=== PATIENT | female | born 1955 | race Caucasian/White ===

== ENCOUNTER 2017-11-30 21:19 | Emergency (ER) | payer SELFPAY ==
[~2017-11-30] VITALS: Ht 157.5 cm; Wt 64.4 kg
[~2017-11-30 21:19] MED LIST: ADDE20XR PO; ALBU6.7H INH; CORTIS10A EACH EAR; PRED20 PO
[2017-11-30 21:23] VITALS: BP 171/79; PULSE 97; RESP 16; TEMP 97.8; O2SAT 96
[2017-11-30] MEDS ORDERED: CORTI10A EACH EAR (22:04)
--- NOTE | 2017-11-30 22:04 | PD ---
HPI Chief Complaint: ENT Complaint Time Seen by Provider: 21:55 Travel History International Travel<30 days: No Contact w/Intl Traveler<30days: No Traveled to known affect area: No History of Present Illness HPI 62-year-old female with bilateral otalgia arrives for evaluation. Patient reports swimming quite a bit lately. No fever. No otorrhea or tinnitus. Similar episodes have been treated successfully in the past with otic drops. PFSH Past Medical History ADHD: Yes Asthma: Yes ?: Not LMP: 11/08/17 Social History Alcohol Use: No Tobacco Use: No Substance Use: No Allergies-Medications (Allergen,Severity, Reaction): Coded Allergies: ibuprofen (Unverified Allergy, Severe, 11/30/17) DENIES ALLERGY Reported Meds & Prescriptions Reported Meds & Active Scripts Active Cortisporin Otic Suspension (Neomycin/Polymyxin/Hydrocortisone) 10 Ml Susp 4 Drop EACH EAR QID 7 Days Review of Systems General / Constitutional: No: Fever Eyes: No: Photophobia Physical Exam Narrative GENERAL: Well-nourished well-developed 8-year-old female pleasant no acute distress Vital Signs Date Time Temp Pulse Resp B/P (MAP) Pulse Ox O2 Delivery O2 Flow Rate FiO2 11/30/17 21:23 97.8 97 16 171/79 (109) 96 SKIN: Warm and dry. HEAD: Atraumatic. Normocephalic. EYES: Pupils equal and round. No scleral icterus. No injection or drainage. ENT: No nasal bleeding or discharge. Mucous membranes pink and moist. Minimal erythema and edema of the external auditory canal bilaterally. NECK: Trachea midline. No JVD. NEUROLOGICAL: Awake and alert. No obvious cranial nerve deficits. Motor grossly within normal limits. Five out of 5 muscle strength in the arms and legs. Normal speech. PSYCHIATRIC: Appropriate mood and affect; insight and judgment normal. Data Data Last Documented VS Vital Signs Date Time Temp Pulse Resp B/P (MAP) Pulse Ox O2 Delivery O2 Flow Rate FiO2 11/30/17 21:23 97.8 97 16 171/79 (109) 96 Orders Orders Ed Discharge Order (11/30/17 22:04) [facility] Medical Decision Making Medical Screen Exam Complete: Yes Emergency Medical Condition: Yes Medical Record Reviewed: Yes Differential Diagnosis Otitis media, otitis externa, trauma Narrative Course Otitis externa present. Prescription as below. Diagnosis Primary Impression: Otitis externa Qualified Codes: H60.63 - Unspecified chronic otitis externa, bilateral Referrals: Primary Care Physician 2 days Med/Other Pt SpecificInfo: Prescription(s) given Disposition: 01 DISCHARGE HOME Condition: Stable Daniel Goldstein MD Nov 30, 2017 22:04
== END 2017-11-30 22:18 | disposition home or self-care (01) ==
LOC: PHED 21:19
DX: H60.93 Unspecified otitis externa, bilateral (principal); F90.9 Attention-deficit hyperactivity disorder, unspecified type; J45.909 Unspecified asthma, uncomplicated; Z88.6 Allergy status to analgesic agent; Z79.899 Other long term (current) drug therapy
CPT/HCPCS: 99281

== ENCOUNTER 2018-01-14 15:51 | Emergency (ER) | payer SELFPAY ==
[~2018-01-14] VITALS: Ht 160 cm; Wt 60.3 kg
[~2018-01-14 15:51] MED LIST changes: -ADDE20XR PO; -ALBU6.7H INH; -PRED20 PO
[2018-01-14 16:04] VITALS: BP 195/92; PULSE 63; RESP 16; TEMP 97.9; O2SAT 95
--- NOTE | 2018-01-14 16:35 | PD ---
HPI Chief Complaint: Skin Problem Time Seen by Provider: 16:24 Travel History International Travel<30 days: No Contact w/Intl Traveler<30days: No Traveled to known affect area: No History of Present Illness HPI 62-year-old female with a history of chronic otitis externa presents emergency department evaluation bilateral ear pain that is been persistent for several months. States that she feels as if her ears are clogged and her pain is severe , nonradiating. Says that she was diagnosed with shingles 3 months ago but is unable to give me any more information regarding this diagnosis or how it is related. She states that she has had diffuse scalp pain associated with lesions for several months as well. Patient is rather frustrated because she is no health insurance. Says she has a difficult time obtaining medications because of this. Patient has not followed up with an torch shearer for her chronic ear infections. Denies fevers or chills. Has no other complaints today. PFSH Past Medical History ADHD: Yes Asthma: Yes Cardiovascular Problems: Yes (htn of takes no meds) Respiratory: Yes (asthma) ?: Not : 4 Para: 3 Social History Alcohol Use: No Tobacco Use: No (1 PPD) Substance Use: No Allergies-Medications (Allergen,Severity, Reaction): Coded Allergies: ibuprofen (Unverified Allergy, Severe, 01/14/18) DENIES ALLERGY Reported Meds & Prescriptions Reported Meds & Active Scripts Active Mupirocin Topical (Mupirocin) 2 % Oint 1 Applic TOPICAL BID Cipro Hc Otic Drops (Ciprofloxacin/Hydrocortisone) 0.2-1% Susp 3 Drop EACH EAR BID 10 Days Review of Systems Except as stated in HPI: all other systems reviewed are Neg Physical Exam Narrative GENERAL: Well-nourished, well-developed patient, anxious SKIN: Focused skin assessment warm/dry. Scalp-multiple small 3 mm ulcerations diffuse across the scalp, no pustules or vesicles present. No edema or erythema. HEAD: Normocephalic. EARS: Bilateral pinnae appear within normal limits. Bilateral tympanic membranes without erythema, dullness or perforation. Bilateral external ear canals erythematous and macerated without exudate or discharge, questionable white patch versus pustule left external ear canal EYES: No scleral icterus. No injection or drainage. PERRLA NECK: Supple, trachea midline. No JVD or lymphadenopathy. CARDIOVASCULAR: Regular rate and rhythm without murmurs, gallops, or rubs. RESPIRATORY: Breath sounds equal bilaterally. No accessory muscle use. MUSCULOSKELETAL: No cyanosis, or edema. BACK: Nontender without obvious deformity. No CVA tenderness. Data Data Last Documented VS Vital Signs Date Time Temp Pulse Resp B/P (MAP) Pulse Ox O2 Delivery O2 Flow Rate FiO2 01/14/18 16:04 97.9 63 16 195/92 (126) 95 Orders Orders Ed Discharge Order (01/14/18 16:39) MDM Medical Decision Making Medical Screen Exam Complete: Yes Emergency Medical Condition: Yes Differential Diagnosis Malignant otitis externa, swimmer's ear, cellulitis Narrative Course 62-year-old female with a history of chronic otitis externa presents emergency department evaluation bilateral ear pain that is been persistent for several months. States that she feels as if her ears are clogged and her pain is severe , nonradiating. Says that she was diagnosed with shingles 3 months ago but is unable to give me any more information regarding this diagnosis or how it is related. She states that she has had diffuse scalp pain associated with lesions for several months as well. Patient is rather frustrated because she is no health insurance. Says she has a difficult time obtaining medications because of this. Patient has not followed up with an torch shearer for her chronic ear infections. Denies fevers or chills. Has no other complaints today. Vital signs are stable although blood pressure slightly elevated. Patient is very anxious upon arrival in examination today. Physical exam findings consistent with otitis externa. After further questioning, patient has chronic otitis externa but has not followed up with an torch shearer. She says she has no insurance to do so. In addition, it appears that patient has impetigo in the scalp that looks like it is extending into the neck region. Patient will be discharged with Cipro HC otic drops and mupirocin. Advised that she should follow-up with a primary care physician and torch shearer. Mandatory referral placed as I am concerned that this may be a malignant otitis externa. Diagnosis Primary Impression: Otitis externa Qualified Codes: H60.63 - Unspecified chronic otitis externa, bilateral Additional Impression: Impetigo Referrals: Bandar Riley MD [facility] Primary Care Physician Additional Instructions: A mandatory referral has been placed for you. Take all medications as prescribed. Consider obtaining her medications from community pharmacy in [place]. They are located at [address] [facility], [place], [place], [address] Scripts Mupirocin Topical (Mupirocin Topical) 2 % Oint 1 APPLIC TOPICAL BID for Mgmt Bacterial Infection, #1 TUBE 0 Refills Prov: Derek Cody MD 01/14/18 Ciprofloxacin-Hydrocortisone Otic Drops (Cipro Hc Otic Drops) 0.2-1% Susp 3 DROP EACH EAR BID for Infection for 10 Days, #1 BOTTLE 0 Refills Prov: Derek Cody MD 01/14/18 Disposition: 01 DISCHARGE HOME Condition: Stable Anabell Pierre January 14, 2018 16:35
[2018-01-14] MEDS ORDERED: MUPI2OIN TOPICAL (16:37)
[2018-01-14] MEDS ORDERED: CIPRHC10A EACH EAR (16:37)
== END 2018-01-14 16:47 | disposition home or self-care (01) ==
LOC: PHEFT 15:51
DX: H60.93 Unspecified otitis externa, bilateral (principal); L01.00 Impetigo, unspecified; F90.9 Attention-deficit hyperactivity disorder, unspecified type; I10 Essential (primary) hypertension; F17.200 Nicotine dependence, unspecified, uncomplicated; Z88.6 Allergy status to analgesic agent
CPT/HCPCS: 99283

== ENCOUNTER 2018-03-29 00:27 | Inpatient (IN) ==
[2018-03-29] MEDS ORDERED: Mag Sulf 1 gm/100 ml Premix 100 ML IV.SIG ONE (00:51)
--- NOTE | 2018-03-29 01:02 | ED ---
HPI General Chief complaint: Fall Stated complaint: Fall/rib inj x sat Time Seen by Provider: 03/29/18 00:46 History of Present Illness HPI narrative: 62-year-old female here for evaluation of rib pain. patient states she fell on her back 3 days ago and since then she is has been having pain "all over her ribs". pain is 6/10, worse with taking deep breath, Patient also reports that she has been coughing for the last week, productive of white sputum, no blood in the sputum, night sweats but no fever, she smokes 1 pack a day for 30+ years. She has been smoking more for the last few days due to a stressful situation at home. She reports shortness of breath, no abdominal pain , no recent travel or sick contacts. Related Data Home Medications Medication Instructions Recorded Confirmed No Known Home Medications 03/29/18 03/29/18 Previous Rx's Medication Instructions Recorded budesonide-formoterol [Symbicort] 2 puff INH BID #1 g 03/30/18 levofloxacin 750 mg PO DAILY #3 tab 03/30/18 Allergies Allergy/AdvReac Type Severity Reaction Status Date / Time ibuprofen Allergy Severe Anaphylaxis Verified 03/29/18 00:59 Review of Systems Except as stated in HPI: all other systems reviewed are negative [facility] Social History Social History Substance History: Unable to Obtain Smoking Status: Current every day smoker Tobacco Type: Cigarettes How Often Do You Have a Drink Containing Alcohol: Monthly or less Recent Travel in [facility] within the Last 8 Weeks: No Recent Out of Country Travel within the Last 8 Weeks: No Exam Narrative Exam Narrative: GENERAL: Alert oriented 3 no acute distress SKIN: Focused skin assessment warm/dry. HEAD: Atraumatic. Normocephalic. EYES: Pupils equal and round. No scleral icterus. No injection or drainage. ENT: No nasal bleeding or discharge. Mucous membranes pink and moist. NECK: Trachea midline. No JVD. CARDIOVASCULAR: Regular rate and rhythm. No murmur appreciated. RESPIRATORY: Expiratory wheezing bilaterally, no accessory muscle use. Breath sounds equal bilaterally. GASTROINTESTINAL: Abdomen soft, non-tender, nondistended. Hepatic and splenic margins not palpable. MUSCULOSKELETAL: No obvious deformities. No clubbing. No cyanosis. No edema. NEUROLOGICAL: Awake and alert. No obvious cranial nerve deficits. Motor grossly within normal limits. Normal speech. PSYCHIATRIC: Appropriate mood and affect; insight and judgment normal. Course Initial Documented Vital Signs Temperature 98.0 F 03/29/18 00:52 Pulse Rate 103 H 03/29/18 00:52 Respiratory Rate 22 03/29/18 00:52 Blood Pressure 153/103 H 03/29/18 00:52 Pulse Oximetry 100 03/29/18 00:52 Last Documented Vital Signs Temperature 97.6 F 03/30/18 12:00 Pulse Rate 85 03/30/18 12:00 Respiratory Rate 20 03/30/18 12:00 Blood Pressure 158/78 H 03/30/18 13:56 Pulse Oximetry 91 L 03/30/18 12:00 Medical Decision Making MDM Narrative Medical decision making narrative: Leukocytosis: With left shift, tachycardia. Could be infectious versus stress, pending urinalysis, patient has been coughing for the last week white sputum. Started patient on Levaquin. Hyponatremia: Sodium 120, patient received 1 L IV fluids. Will be admitted for further evaluation Multiple rib fractures: Patient fell on her back and says someone fell on top of her, having pain with respirations. pulmonary contusion: CAT scan shows right middle lobe infiltrates atelectasis versus contusion. hypoxia: When arrived in the ER saturation was 86 on room air, responded to multiple neb treatment and Decadron, smoker with baseline COPD. Will be admitted for hypoxia. Lab Data Result diagrams: 03/30/18 07:32 03/30/18 07:32 Lab Results 03/29/18 03/29/18 03/29/18 Range/Units 01:30 01:30 01:30 CBC w Diff Auto diff final WBC 15.8 H (4.0-11.0) th/mm3 RBC 5.28 (4.00-5.30) mil/mm3 Hgb 16.0 H (11.6-15.3) gm/dL Hct 48.1 H (35.0-46.0) % MCV 91.1 (80.0-100.0) fL MCH 30.3 (27.0-34.0) pg MCHC 33.3 (32.0-36.0) % RDW 13.6 (11.6-17.2) % Plt Count 436 (150-450) th/mm3 MPV 8.5 (7.0-11.0) fL Neut % (Auto) 77.5 H (16.0-70.0) % Lymph % (Auto) 9.8 (9.0-44.0) % [place] % (Auto) 7.9 (0.0-8.0) % Eos % (Auto) 0.2 (0.0-4.0) % Baso % (Auto) 4.6 H (0.0-2.0) % Neut # (Auto) 12.4 H (1.8-7.7) th/mm3 Lymph # (Auto) 1.5 (1.0-4.8) th/mm3 [place] # (Auto) 1.2 H (0.0-0.9) th/mm3 Eos # (Auto) 0.0 (0.0-0.4) th/mm3 Baso # (Auto) 0.7 H (0.0-0.2) th/mm3 WBC Differential . Differential Comment . PT 10.6 (9.8-11.6) sec INR 1.0 Ratio APTT 21.4 L (24.3-30.1) sec D-Dimer Quant (PE/DVT) 3.83 H (0.00-0.50) mg/L FEU Sodium 120 L* (136-145) meq/L Potassium 4.4 (3.5-5.1) meq/L Chloride 81 L (98-107) meq/L Carbon Dioxide 30.5 (21.0-32.0) meq/L Anion Gap 9 (5-15) meq/L BUN 13 (7-18) mg/dL Creatinine 0.64 (0.50-1.00) mg/dL Estimated GFR Greater than 89 (>89) mL/min Random Glucose 180 H (74-106) mg/dL Calcium 9.2 (8.5-10.1) mg/dL Total Bilirubin 0.7 (0.2-1.0) mg/dL AST 44 H (15-37) U/L ALT 30 (10-53) U/L Alkaline Phosphatase 105 (45-117) U/L Total Creatine Kinase 145 (26-192) U/L CK-MB (CK-2) 5.4 H (0.5-3.6) ng/mL Troponin I 0.03 (0.02-0.05) ng/mL B-Natriuretic Peptide (0-100) pg/mL Total Protein 7.8 (6.4-8.2) g/dL Albumin 3.0 L (3.4-5.0) g/dL Urine Color (Yellw/Straw) Urine Clarity (Clear) Urine pH (5.0-8.5) Ur Specific [place] (1.002-1.035) Urine Protein (Neg-Trace) mg/dL Urine Glucose (UA) (Negative) mg/dL Urine Ketones (Negative) mg/dL Urine Occult Blood (Negative) Urine Nitrate (Negative) Urine Bilirubin (Negative) Urine Urobilinogen (Less than 2) mg/dL Ur Leukocyte Esterase (Negative) Urine WBC (0-5) /hpf Ur Squamous Epith Cells (0-5) /hpf Micro UA Comment Urine Culture Comments Urine Opiates Screen (Neg) Ur Barbiturates Screen (Neg) Ur Amphetamines Screen (Neg) U Benzodiazepines Scrn (Neg) Urine Cocaine Screen (Neg) U Cannabinoids Screen (Neg) Serum Alcohol (0-5) mg/dL 03/29/18 03/29/18 03/29/18 Range/Units 01:30 01:30 04:30 CBC w Diff WBC (4.0-11.0) th/mm3 RBC (4.00-5.30) mil/mm3 Hgb (11.6-15.3) gm/dL Hct (35.0-46.0) % MCV (80.0-100.0) fL MCH (27.0-34.0) pg MCHC (32.0-36.0) % RDW (11.6-17.2) % Plt Count (150-450) th/mm3 MPV (7.0-11.0) fL Neut % (Auto) (16.0-70.0) % Lymph % (Auto) (9.0-44.0) % [place] % (Auto) (0.0-8.0) % Eos % (Auto) (0.0-4.0) % Baso % (Auto) (0.0-2.0) % Neut # (Auto) (1.8-7.7) th/mm3 Lymph # (Auto) (1.0-4.8) th/mm3 [place] # (Auto) (0.0-0.9) th/mm3 Eos # (Auto) (0.0-0.4) th/mm3 Baso # (Auto) (0.0-0.2) th/mm3 WBC Differential Differential Comment PT (9.8-11.6) sec INR Ratio APTT (24.3-30.1) sec D-Dimer Quant (PE/DVT) (0.00-0.50) mg/L FEU Sodium (136-145) meq/L Potassium (3.5-5.1) meq/L Chloride (98-107) meq/L Carbon Dioxide (21.0-32.0) meq/L Anion Gap (5-15) meq/L BUN (7-18) mg/dL Creatinine (0.50-1.00) mg/dL Estimated GFR (>89) mL/min Random Glucose (74-106) mg/dL Calcium (8.5-10.1) mg/dL Total Bilirubin (0.2-1.0) mg/dL AST (15-37) U/L ALT (10-53) U/L Alkaline Phosphatase (45-117) U/L Total Creatine Kinase (26-192) U/L CK-MB (CK-2) (0.5-3.6) ng/mL Troponin I (0.02-0.05) ng/mL B-Natriuretic Peptide 225 H (0-100) pg/mL Total Protein (6.4-8.2) g/dL Albumin (3.4-5.0) g/dL Urine Color (Yellw/Straw) Urine Clarity (Clear) Urine pH (5.0-8.5) Ur Specific [place] (1.002-1.035) Urine Protein (Neg-Trace) mg/dL Urine Glucose (UA) (Negative) mg/dL Urine Ketones (Negative) mg/dL Urine Occult Blood (Negative) Urine Nitrate (Negative) Urine Bilirubin (Negative) Urine Urobilinogen (Less than 2) mg/dL Ur Leukocyte Esterase (Negative) Urine WBC (0-5) /hpf Ur Squamous Epith Cells (0-5) /hpf Micro UA Comment Urine Culture Comments Urine Opiates Screen Neg (Neg) Ur Barbiturates Screen Neg (Neg) Ur Amphetamines Screen Neg (Neg) U Benzodiazepines Scrn Neg (Neg) Urine Cocaine Screen Neg (Neg) U Cannabinoids Screen Neg (Neg) Serum Alcohol Less than 3 (0-5) mg/dL 03/29/18 03/29/18 03/29/18 Range/Units 06:15 11:36 11:36 CBC w Diff WBC (4.0-11.0) th/mm3 RBC (4.00-5.30) mil/mm3 Hgb (11.6-15.3) gm/dL Hct (35.0-46.0) % MCV (80.0-100.0) fL MCH (27.0-34.0) pg MCHC (32.0-36.0) % RDW (11.6-17.2) % Plt Count (150-450) th/mm3 MPV (7.0-11.0) fL Neut % (Auto) (16.0-70.0) % Lymph % (Auto) (9.0-44.0) % [place] % (Auto) (0.0-8.0) % Eos % (Auto) (0.0-4.0) % Baso % (Auto) (0.0-2.0) % Neut # (Auto) (1.8-7.7) th/mm3 Lymph # (Auto) (1.0-4.8) th/mm3 [place] # (Auto) (0.0-0.9) th/mm3 Eos # (Auto) (0.0-0.4) th/mm3 Baso # (Auto) (0.0-0.2) th/mm3 WBC Differential Differential Comment PT (9.8-11.6) sec INR Ratio APTT (24.3-30.1) sec D-Dimer Quant (PE/DVT) (0.00-0.50) mg/L FEU Sodium Cancelled 130 L D (136-145) meq/L Potassium 4.1 (3.5-5.1) meq/L Chloride 94 L D (98-107) meq/L Carbon Dioxide 27.8 (21.0-32.0) meq/L Anion Gap 8 (5-15) meq/L BUN 10 (7-18) mg/dL Creatinine 0.47 L (0.50-1.00) mg/dL Estimated GFR Greater than 89 (>89) mL/min Random Glucose 123 H (74-106) mg/dL Calcium 8.6 (8.5-10.1) mg/dL Total Bilirubin (0.2-1.0) mg/dL AST (15-37) U/L ALT (10-53) U/L Alkaline Phosphatase (45-117) U/L Total Creatine Kinase (26-192) U/L CK-MB (CK-2) (0.5-3.6) ng/mL Troponin I (0.02-0.05) ng/mL B-Natriuretic Peptide (0-100) pg/mL Total Protein (6.4-8.2) g/dL Albumin (3.4-5.0) g/dL Urine Color Yellow (Yellw/Straw) Urine Clarity Clear (Clear) Urine pH 6.5 (5.0-8.5) Ur Specific [place] Less/equal 1.005 (1.002-1.035) Urine Protein Negative (Neg-Trace) mg/dL Urine Glucose (UA) Negative (Negative) mg/dL Urine Ketones Negative (Negative) mg/dL Urine Occult Blood Negative (Negative) Urine Nitrate Negative (Negative) Urine Bilirubin Negative (Negative) Urine Urobilinogen 0.2 (Less than 2) mg/dL Ur Leukocyte Esterase Negative (Negative) Urine WBC 0-5 (0-5) /hpf Ur Squamous Epith Cells 0-5 (0-5) /hpf Micro UA Comment Culture not ind Urine Culture Comments Culture not ind Urine Opiates Screen (Neg) Ur Barbiturates Screen (Neg) Ur Amphetamines Screen (Neg) U Benzodiazepines Scrn (Neg) Urine Cocaine Screen (Neg) U Cannabinoids Screen (Neg) Serum Alcohol (0-5) mg/dL 03/30/18 03/30/18 Range/Units 07:32 07:32 CBC w Diff Auto diff final WBC 9.2 (4.0-11.0) th/mm3 RBC 4.49 (4.00-5.30) mil/mm3 Hgb 14.0 D (11.6-15.3) gm/dL Hct 41.4 (35.0-46.0) % MCV 92.2 (80.0-100.0) fL MCH 31.2 (27.0-34.0) pg MCHC 33.8 (32.0-36.0) % RDW 13.6 (11.6-17.2) % Plt Count 440 (150-450) th/mm3 MPV 7.9 (7.0-11.0) fL Neut % (Auto) 80.0 H (16.0-70.0) % Lymph % (Auto) 11.4 (9.0-44.0) % [place] % (Auto) 7.0 (0.0-8.0) % Eos % (Auto) 1.1 (0.0-4.0) % Baso % (Auto) 0.5 (0.0-2.0) % Neut # (Auto) 7.5 (1.8-7.7) th/mm3 Lymph # (Auto) 1.0 (1.0-4.8) th/mm3 [place] # (Auto) 0.6 (0.0-0.9) th/mm3 Eos # (Auto) 0.1 (0.0-0.4) th/mm3 Baso # (Auto) 0.0 (0.0-0.2) th/mm3 WBC Differential . Differential Comment . PT (9.8-11.6) sec INR Ratio APTT (24.3-30.1) sec D-Dimer Quant (PE/DVT) (0.00-0.50) mg/L FEU Sodium 131 L (136-145) meq/L Potassium 4.7 (3.5-5.1) meq/L Chloride 91 L (98-107) meq/L Carbon Dioxide 32.4 H (21.0-32.0) meq/L Anion Gap 8 (5-15) meq/L BUN 8 (7-18) mg/dL Creatinine 0.54 (0.50-1.00) mg/dL Estimated GFR Greater than 89 (>89) mL/min Random Glucose 119 H (74-106) mg/dL Calcium 9.3 (8.5-10.1) mg/dL Total Bilirubin 0.5 (0.2-1.0) mg/dL AST 13 L (15-37) U/L ALT 29 (10-53) U/L Alkaline Phosphatase 83 (45-117) U/L Total Creatine Kinase (26-192) U/L CK-MB (CK-2) (0.5-3.6) ng/mL Troponin I (0.02-0.05) ng/mL B-Natriuretic Peptide (0-100) pg/mL Total Protein 6.8 D (6.4-8.2) g/dL Albumin 2.7 L (3.4-5.0) g/dL Urine Color (Yellw/Straw) Urine Clarity (Clear) Urine pH (5.0-8.5) Ur Specific [place] (1.002-1.035) Urine Protein (Neg-Trace) mg/dL Urine Glucose (UA) (Negative) mg/dL Urine Ketones (Negative) mg/dL Urine Occult Blood (Negative) Urine Nitrate (Negative) Urine Bilirubin (Negative) Urine Urobilinogen (Less than 2) mg/dL Ur Leukocyte Esterase (Negative) Urine WBC (0-5) /hpf Ur Squamous Epith Cells (0-5) /hpf Micro UA Comment Urine Culture Comments Urine Opiates Screen (Neg) Ur Barbiturates Screen (Neg) Ur Amphetamines Screen (Neg) U Benzodiazepines Scrn (Neg) Urine Cocaine Screen (Neg) U Cannabinoids Screen (Neg) Serum Alcohol (0-5) mg/dL Imaging Data Radiologist's impression: Chest X-Ray 03/29/18 00:51 CONCLUSION: 1. Changes of obstructive pulmonary disease. 2. Discoid airspace disease in the left lower lobe likely reflecting atelectasis/scarring. Chest CTA 03/29/18 03:35 CONCLUSION: Discharge Plan Discharge Disposition Patient Disposition: 30 Still Patient Discharge Condition Condition: Stable Discharge Order Discharge Orders: Discharge Order (Routine); Ordered 03/30/18 Ordered By: Madeleine Aden Discharge Details Anticipated Discharge Date: 03/30/18 Diagnosis: Contusion of lung, Acute hyponatremia, Hypoxia Physicians Team ED Provider: Jluis Wiggins Primary Care Provider: Primary Care Sharri Mireles Attending Provider: Madeleine Aden Status ED Status: Left Department Discharge Information Discharge Date/Time: 03/29/18 10:00
--- NOTE | 2018-03-29 01:29 | XR ---
EXAM DATE: 03/29/2018 1:21 AM EDT AGE/SEX: 62 years / Female INDICATIONS: . Shortness of breath CLINICAL DATA: This is the patient's initial encounter. Patient reports that signs and symptoms have been present for 4 - 6 days and indicates a pain score of 10/10. MEDICAL/SURGICAL HISTORY: Chronic obstructive pulmonary disease. None. COMPARISON: No prior exams available for comparison. FINDINGS: Lungs are hyperexpanded with diffuse interstitial prominence. Mild discoid linear peripheral opacity in the left lower lobe. Cardiomediastinal contours are within normal limits. Bony thorax is intact. CONCLUSION: 1. Changes of obstructive pulmonary disease. 2. Discoid airspace disease in the left lower lobe likely reflecting atelectasis/scarring. Electronically signed by: Terry Lee MD 03/29/2018 1:27 AM EDT
[2018-03-29 01:49] LABS: Baso # (Auto) 0.7 th/mm3 (0.0-0.2); Baso % (Auto) 4.6 % (0.0-2.0); Eos % (Auto) 0.2 % (0.0-4.0); Hematocrit 48.1 % (35.0-46.0); Lymph # (Auto) 1.5 th/mm3 (1.0-4.8); Lymph % (Auto) 9.8 % (9.0-44.0); Mean Corpuscular HGB Conc 33.3 % (32.0-36.0); Mean Corpuscular Hemoglobin 30.3 pg (27.0-34.0); Mean Corpuscular Volume 91.1 fL (80.0-100.0); Mean Platelet Volume 8.5 fL (7.0-11.0); Mono # (Auto) 1.2 th/mm3 (0.0-0.9); Mono % (Auto) 7.9 % (0.0-8.0); Neut # (Auto) 12.4 th/mm3 (1.8-7.7); Neut % (Auto) 77.5 % (16.0-70.0); Platelet Count 436 th/mm3 (150-450); Red Blood Count 5.28 mil/mm3 (4.00-5.30); Red Cell Distribution Width 13.6 % (11.6-17.2); White Blood Count 15.8 th/mm3 (4.0-11.0)
[2018-03-29 02:09] LABS: Activated Partial Thrombo Time 21.4 sec (24.3-30.1); Prothrombin Time 10.6 sec (9.8-11.6)
[2018-03-29 02:28] LABS: D-Dimer 3.83 mg/L FEU (0.00-0.50)
[2018-03-29 03:27] LABS: Alanine Aminotransferase 30 U/L (10-53); Alkaline Phosphatase 105 U/L (45-117); Anion Gap 9 meq/L (5-15); Aspartate Aminotransferase 44 U/L (15-37); Blood Urea Nitrogen 13 mg/dL (7-18); Calcium 9.2 mg/dL (8.5-10.1); Carbon Dioxide 30.5 meq/L (21.0-32.0); Chloride 81 meq/L (98-107); Creatine Kinase 145 U/L (26-192); Glomerular Filtration Rate Greater Than 89 mL/min (>89); Potassium 4.4 meq/L (3.5-5.1); Total Protein 7.8 g/dL (6.4-8.2); Troponin I 0.03 ng/mL (0.02-0.05)
[2018-03-29 03:32] LABS: Sodium 120 meq/L (136-145)
[2018-03-29 03:43] LABS: Glucose,Random 180 mg/dL (74-106)
[2018-03-29] MEDS ORDERED: Sod Chloride 0.9% Inj 1,000 ML IV.SIG ONE (03:48)
[2018-03-29 03:50] LABS: Creatine Kinase MB 5.4 ng/mL (0.5-3.6)
--- NOTE | 2018-03-29 04:36 | CT ---
EXAM DATE: 03/29/2018 4:18 AM EDT AGE/SEX: 62 years / Female INDICATIONS: Fell and injured ribs five days prior. CLINICAL DATA: This is the patient's initial encounter. Patient reports that signs and symptoms have been present for 4 - 6 days and indicates a pain score of 5/10. MEDICAL/SURGICAL HISTORY: Chronic obstructive pulmonary disease. . RADIATION DOSE: 6.18 CTDI (mGy) COMPARISON: None available. TECHNIQUE: Volumetric scanning was performed using a multi-row detector CT scanner during bolus infu alda of 71 ml Omnipaque 350 (iohexol) nonionic water-soluble contrast as a single exam dose. The cornelia a was post processed with a variety of visualization algorithms including full volume maximum intensi ty projection and sliding thin slab reformation. Using automated exposure control and adjustment of the mA and/or kV according to patient size, radiation dose was kept as low as reasonably achievable t o obtain optimal diagnostic quality images. DICOM format image data is available electronically for review and comparison. FINDINGS: Pulmonary Arteries: No filling defects are seen in the pulmonary arteries through the segmental vess els. The main pulmonary artery is normal in diameter. Lung: Biapical scarring. Airspace consolidation and volume loss in the right middle lobe and lingula . Debris noted in the right mainstem bronchus. Pleura: No effusion, significant pleural thickening or pneumothorax. Mediastinum: Heart is unremarkable without pericardial effusion.No evidence of mediastinal or hilar adenopathy. Osseous Structures: Multiple bilateral anterior rib fractures. The third and fifth anterior right rib fractures are mildly displaced. Remaining vertebral fractures are not significantly displaced. Other: Visulaized upper abdomen is unremarkable. 1. Multiple bilateral anterior rib fractures with slightly displaced anterior third and fifth right rib fractures. No pneumothorax. 2. Airspace consolidation and volume loss in the right middle lobe and lingula. There is also small amount of debris in the right mainstem bronchus. Differential considerations include pulmonary contus ion versus atelectasis versus aspiration. Electronically signed by: Terry Lee MD 03/29/2018 4:35 AM EDT
[2018-03-29 04:52] LABS: Amphetamine Screen,Urine Neg (Neg); Barbiturate Screen,Urine Neg (Neg); Cannabinoid Screen,Urine Neg (Neg); Cocaine Screen,Urine Neg (Neg)
[2018-03-29 05:00] LABS: Opiate Screen,Urine Neg (Neg)
[2018-03-29] MEDS ORDERED: Levofloxacin 500 mg Premix Inj 500 MG/100 ML PIGGYBACK IV.SIG STA (05:03)
[2018-03-29] MEDS ORDERED: Bisacodyl 10 MG Supp RECTAL PRN (05:04)
[2018-03-29] MEDS ORDERED: Temazepam 15 MG Capsule PO PRN (05:04)
[2018-03-29] MEDS ORDERED: Acetaminophen 325 MG Tablet PO PRN (05:04)
[2018-03-29] MEDS ORDERED: Sod Chloride 0.9% Inj 1,000 ML IV.CONT SCH (05:15)
[2018-03-29 06:29] LABS: Bilirubin,Urine Negative (Negative); Clarity,Urine Clear (Clear); Color,Urine Yellow (Yellw/Straw); Glucose,Urine (UA) Negative (Negative); Leukocyte Esterase,Urine Negative (Negative); Nitrite,Urine Negative (Negative); PH,Urine 6.5 (5.0-8.5); Specific Gravity,Urine Less/Equal 1.005 (1.002-1.035); Urobilinogen,Urine 0.2 mg/dL (Less than 2)
[2018-03-29 06:39] LABS: Squamous Epithelial Cell,Urine 0-5 /hpf (0-5); WBC,Urine 0-5 /hpf (0-5)
[2018-03-29] MEDS: Budesonide-Formoterol 160/4.5 MCG 6 GM Inhaler INH SCH ×2 (09:01→21:07)
[2018-03-29] MEDS: Senna/Docusate Sodium 8.6/50 MG Tablet PO SCH ×2 (09:02→21:07)
--- NOTE | 2018-03-29 11:19 | P.HPIM ---
History of Present Illness Primary Care Physician: No Primary Care Physician Chief Complaint: Fall with chest pain History of Present Illness: This patient is a 62-year-old [place] female who admits she fell about a week ago and after drinking alcohol. She says she has had significant pain over the last several days and has not had any relief. She came to the emergency room for further evaluation was found by imaging to have multiple bilateral rib fractures with some right-sided displacement of rib fractures. Patient never had rib fractures before. She reports that she was drinking quite a bit of alcohol and fell. She does have some hypoxemia documented in the ER notes as admitted for acute respiratory failure. Her oxygenation was 86% on room air, patient was mildly tachypneic with a leukocytosis. She is complaining of moderate to severe rib pain which has been improved with hydrocodone. Patient' s oxygenation remains marginal and she has required 2 L O2 to maintain sats above 90%. Patient also found to have some hyponatremia 120. She has been admitted to the ICU for further evaluation and treatment. Patient also is complaining of left-sided ear discomfort and fullness. - Diagnosis (1) Acute hyponatremia (2) Hypoxia (3) Rib fracture Inpatient Certification: I certify that the inpatient services were ordered in accordance with Medicare regulations governing the order. This includes certification that hospital inpatient services are reasonable and necessary and in the case of services not specified as inpatient-only under 42 CFR 419.22(n), that they are appropriately provided as inpatient services in accordance to with the 2-midnight benchmark under 43 CFR 412.3(e) Estimated Total Length of Stay (Days): 2 Plans for Post Hospital Care: Not yet determined Review of Systems All other systems reviewed negative except as stated in HPI Ears, Nose, Mouth, and Throat: Reports other PMFSH - History History Provided By: Patient, Family Member - Medical History Medical History: Medical History (Last Reviewed 03/29/18 @ 11:14 by Madeleine Aden MD) COPD (chronic obstructive pulmonary disease) - Tobacco History Tobacco Use In Past 30 Days: Yes Smoking Status: Current every day smoker Tobacco Type: Cigarettes - Alcohol History How Often Do You Have a Drink Containing Alcohol: Monthly or less - Substance Use History Substance History: Unable to Obtain - Travel History Recent Travel in the [place] Within the Last 8 Weeks: No Recent Travel Out of the Country Within the Last 8 Weeks: No - Immunization History Tetanus Immunization: <5 Years Medications and Allergies Active Medications: Active Medications Acetaminophen (Tylenol) 650 mg PO Q4H PRN PRN Reason: Temp > 100.4 Hydrocodone Bitart/Acetaminophen ([place] 10/325) 1 tab PO Q4H PRN PRN Reason: PAIN 6-10 Last Admin: 03/29/18 08:07 Dose: 1 tab Hydrocodone Bitart/Acetaminophen ([place] 5/325) 1 tab PO Q4H PRN PRN Reason: PAIN 3-5 Al Hydroxide/Mg Hydroxide (Milk Of Magnesia Liq) 30 ml PO Q12H PRN PRN Reason: Mild Constipation Albuterol (Duoneb Neb (Prn)) 1 ampul NEB Q4HR NEB PRN PRN Reason: SOB/WHEEZING Bisacodyl (Dulcolax Supp) 10 mg RECTAL DAILY PRN PRN Reason: SEVERE CONSITIPATION Budesonide/Formoterol Fumarate (Symbicort 160/4.5 Mcg Inh) 2 puff INH BID [facility] Last Admin: 03/29/18 09:01 Dose: 2 puff Chlorhexidine Gluconate (Chlorhexidine 2% Cloth) 3 pack TOPICAL DAILY@0400 SANKET Stop: 04/04/18 03:59 Chlorhexidine Gluconate (Chlorhexidine 2% Cloth) 3 pack TOPICAL DAILY@0400 PRN PRN Reason: Extra cloth needed Stop: 04/04/18 03:59 Levofloxacin/Dextrose (Levaquin 750 Mg Premix Inj) 150 mls @ 100 mls/hr IV.SIG Q24H [facility] Sodium Chloride (Ns Inj) 1,000 mls @ 100 mls/hr IV.CONT .Q10H [facility] Last Admin: 03/29/18 05:17 Dose: 100 mls/hr Lactulose (Lactulose Liq) 30 ml PO DAILY PRN PRN Reason: SEVERE CONSITIPATION Ondansetron HCl (Zofran Inj) 4 mg IV.PUSH Q6H PRN PRN Reason: NAUSEA OR VOMITING Senna/Docusate Sodium (Bessy-Colace) 1 tab PO BID [facility] Last Admin: 03/29/18 09:02 Dose: 1 tab Sennosides (Senokot) 17.2 mg PO Q12H PRN PRN Reason: Moderate Constipation Temazepam (Restoril) 15 mg PO HS PRN PRN Reason: INSOMNIA Allergies Allergy/AdvReac Type Severity Reaction Status Date / Time ibuprofen Allergy Severe Anaphylaxis Verified 03/29/18 00:59 Home Medications Medication Instructions Recorded Confirmed Type No Known Home Medications 03/29/18 03/29/18 History Exam Vital signs: Vital Signs 03/29/18 00:52 03/29/18 00:59 03/29/18 01:25 Temperature 98.0 F Pulse Rate 103 H 99 H 95 H Respiratory Rate 22 22 22 Blood Pressure 153/103 H Pulse Oximetry 100 92 L 03/29/18 01:58 03/29/18 05:00 03/29/18 05:22 Temperature Pulse Rate 97 H 85 85 Respiratory Rate 20 18 18 Blood Pressure 115/52 L 118/42 L 118/42 L Pulse Oximetry 96 99 99 03/29/18 08:00 03/29/18 10:37 03/29/18 10:46 Temperature 98.6 F 98.2 F Pulse Rate 98 H 82 Respiratory Rate 18 20 Blood Pressure 125/61 Pulse Oximetry 97 92 L Intake & Output 03/28/18 03/29/18 03/29/18 18:59 06:59 18:59 Intake Total 1200 / 1200 Output Total 1200 / 1200 400 / 400 Balance 0 / 0 -400 / -400 Weight 70.307 kg Intake: IV 1200 / 1200 Levaquin 500 mg Premix Inj 500 100 / 100 mg In 100 ml @ 100 mls/hr IV. SIG ONCE STA Rx#:[id number] NS Inj 1,000 ML @ Wide Open IV. 1000 / 1000 SIG BOLUS ONE Rx#:[id number] Output: Urine 1200 / 1200 400 / 400 Narrative: GENERAL: Patient calm resting and complaining of chest pain SKIN: Warm and dry. No rashes or ecchymotic injuries EYES: Pupils equal and round. No scleral icterus. No injection or drainage. ENT: External ear exam normal., Bilateral mild ceruminosis with dullness of the tympanic membrane left greater than right. No acute nasal bleeding or discharge. Mucous membranes pink and moist. CARDIOVASCULAR: Regular rate and rhythm. No murmurs gallops or rubs appreciated RESPIRATORY: Rhonchorous breath sounds on the right GASTROINTESTINAL: Abdomen soft, non-tender, nondistended. Hepatic and splenic margins not palpable. MUSCULOSKELETAL: Extremities without clubbing, cyanosis, or edema. No obvious deformities. NEUROLOGICAL: Awake and alert. No obvious cranial nerve deficits. Motor grossly within normal limits. Five out of 5 muscle strength in the arms and legs. Normal speech. Results - Labs CBC & Chem 7: 03/29/18 01:30 03/29/18 01:30 Labs: Short CBC 03/29/18 Range/Units 01:30 WBC 15.8 H (4.0-11.0) th/mm3 Hgb 16.0 H (11.6-15.3) gm/dL Hct 48.1 H (35.0-46.0) % Plt Count 436 (150-450) th/mm3 BMP 03/29/18 01:30 Sodium 120 L* Potassium 4.4 Chloride 81 L Carbon Dioxide 30.5 BUN 13 Creatinine 0.64 Calcium 9.2 Cardiac Enzymes 03/29/18 Range/Units 01:30 Total Creatine Kinase 145 (26-192) U/L CK-MB (CK-2) 5.4 H (0.5-3.6) ng/mL Troponin I 0.03 (0.02-0.05) ng/mL Liver Function 03/29/18 Range/Units 01:30 Total Bilirubin 0.7 (0.2-1.0) mg/dL AST 44 H (15-37) U/L ALT 30 (10-53) U/L Alkaline Phosphatase 105 (45-117) U/L Albumin 3.0 L (3.4-5.0) g/dL Urine 03/29/18 Range/Units 06:15 Urine Color Yellow (Yellw/Straw) Urine Clarity Clear (Clear) Urine pH 6.5 (5.0-8.5) Ur Specific [place] Less/equal 1.005 (1.002-1.035) Urine Protein Negative (Neg-Trace) mg/dL Urine Glucose (UA) Negative (Negative) mg/dL - Imaging Impressions Chest X-Ray 03/29/18 00:51 CONCLUSION: 1. Changes of obstructive pulmonary disease. 2. Discoid airspace disease in the left lower lobe likely reflecting atelectasis/scarring. Chest CTA 03/29/18 03:35 CONCLUSION: Caprini VTE Risk Assessment Caprini VTE Risk Assessment: No/Low Risk (score <= 1) Caprini Risk Assessment Model: Point Value = 1 Point Value = 2 Point Value = 3 Point Value = 5 Age 41-60 Minor surgery BMI > 25 kg/m2 Swollen legs Varicose veins or History of unexplained or recurrent spontaneous Oral contraceptives or hormone replacement Sepsis (< 1 month) Serious lung disease, including pneumonia (< 1 month) Abnormal pulmonary function Acute myocardial infarction Congestive heart failure (< 1 month) History of inflammatory bowel disease Medical patient at bed rest Age 61-74 Arthroscopic surgery Major open surgery (> 45 min) Laparoscopic surgery (> 45 min) Malignancy Confined to bed (> 72 hours) Immobilizing plaster cast Central venous access Age >= 75 History of VTE Family history of VTE Factor V Leiden Prothrombin [id number] Lupus anticoagulant Anticardiolipin antibodies Elevated serum homocysteine Heparin-induced thrombocytopenia Other congenital or acquired thrombophilia Stroke (< 1 month) Elective arthroplasty Hip, pelvis, or leg fracture Acute spinal cord injury (< 1 month) Prophylaxis Regimen: Total Risk Factor Score Risk Level Prophylaxis Regimen 0-1 Low Early ambulation 2 Moderate Order ONE of the following: *Sequential Compression Device (SCD) *Heparin 5000 units SQ BID 3-4 Higher Order ONE of the following medications: *Heparin 5000 units SQ TID *Enoxaparin/Lovenox 40 mg SQ daily (WT < 150 kg, CrCl > 30 mL/min) *Enoxaparin/Lovenox 30 mg SQ daily (WT < 150 kg, CrCl > 10-29 mL/min) *Enoxaparin/Lovenox 30 mg SQ BID (WT < 150 kg, CrCl > 30 mL/min) AND/OR *Sequential Compression Device (SCD) 5 or more Highest Order ONE of the following medications: *Heparin 5000 units SQ TID (Preferred with Epidurals) *Enoxaparin/Lovenox 40 mg SQ daily (WT < 150 kg, CrCl > 30 mL/min) *Enoxaparin/Lovenox 30 mg SQ daily (WT < 150 kg, CrCl > 10-29 mL/min) *Enoxaparin/Lovenox 30 mg SQ BID (WT < 150 kg, CrCl > 30 mL/min) AND *Sequential Compression Device (SCD) Assessment and Plan - Assessment (1) Acute hyponatremia Code(s): E87.1 - Hypo-osmolality and hyponatremia Status: Acute Plan: Probably multifactorial due to acute pulmonary process as well as alcohol dependency issues Follow-up repeat electrolytes Continue IV hydration and avoid rapid correction (2) Hypoxia Code(s): R09.02 - Hypoxemia Status: Acute Plan: Patient with acute hypoxemic respiratory failure at 86% on room air, continue O2 May be underlying C OPD but this has never been diagnosed, continue pain control for rib fracture as patient may be splinting Patient with significant tobaccoism, will continue with Solu-Medrol, bronchodilator by nebulizer, and levofloxacin Patient education (3) Rib fracture Code(s): S22.39XA - Fracture of one rib, unspecified side, initial encounter for closed fracture Status: Acute Plan: Continue with oxycodone Anti-inflammatory would be ideal the patient has an ibuprofen allergy
[2018-03-29] MEDS: MethylPREDNISolone Sod Succinate Inj 40 MG/ML Vial IV.PUSH SCH ×2 (11:58→22:59)
[2018-03-29 12:22] LABS: Chloride 94 meq/L (98-107); Potassium 4.1 meq/L (3.5-5.1); Sodium 130 meq/L (136-145)
[2018-03-29 12:25] LABS: Anion Gap 8 meq/L (5-15); Calcium 8.6 mg/dL (8.5-10.1); Carbon Dioxide 27.8 meq/L (21.0-32.0); Glucose,Random 123 mg/dL (74-106)
[2018-03-29 12:26] LABS: Blood Urea Nitrogen 10 mg/dL (7-18)
[2018-03-29 12:29] LABS: Glomerular Filtration Rate Greater Than 89 mL/min (>89)
[2018-03-30] MEDS ORDERED: Chlorhexidine Gluconate 2% 1 Pack (2 Cloths) TOPICAL PRN (04:00)
[2018-03-30] MEDS ORDERED: Chlorhexidine Gluconate 2% 1 Pack (2 Cloths) TOPICAL SCH (04:00)
[2018-03-30 08:06] LABS: Chloride 91 meq/L (98-107); Potassium 4.7 meq/L (3.5-5.1); Sodium 131 meq/L (136-145)
[2018-03-30 08:12] LABS: Albumin 2.7 g/dL (3.4-5.0); Anion Gap 8 meq/L (5-15); Blood Urea Nitrogen 8 mg/dL (7-18); Calcium 9.3 mg/dL (8.5-10.1); Carbon Dioxide 32.4 meq/L (21.0-32.0); Glucose,Random 119 mg/dL (74-106)
[2018-03-30 08:15] LABS: Alanine Aminotransferase 29 U/L (10-53); Aspartate Aminotransferase 13 U/L (15-37)
[2018-03-30 08:16] LABS: Glomerular Filtration Rate Greater Than 89 mL/min (>89)
[2018-03-30 08:17] LABS: Total Protein 6.8 g/dL (6.4-8.2)
[2018-03-30 08:18] LABS: Alkaline Phosphatase 83 U/L (45-117)
[2018-03-30 08:36] LABS: Baso % (Auto) 0.5 % (0.0-2.0); Eos # (Auto) 0.1 th/mm3 (0.0-0.4); Eos % (Auto) 1.1 % (0.0-4.0); Hematocrit 41.4 % (35.0-46.0); Lymph % (Auto) 11.4 % (9.0-44.0); Mean Corpuscular HGB Conc 33.8 % (32.0-36.0); Mean Corpuscular Hemoglobin 31.2 pg (27.0-34.0); Mean Corpuscular Volume 92.2 fL (80.0-100.0); Mean Platelet Volume 7.9 fL (7.0-11.0); Mono # (Auto) 0.6 th/mm3 (0.0-0.9); Neut # (Auto) 7.5 th/mm3 (1.8-7.7); Platelet Count 440 th/mm3 (150-450); Red Blood Count 4.49 mil/mm3 (4.00-5.30); Red Cell Distribution Width 13.6 % (11.6-17.2); White Blood Count 9.2 th/mm3 (4.0-11.0)
[2018-03-30] MEDS: Senna/Docusate Sodium 8.6/50 MG Tablet PO SCH (08:40)
[2018-03-30] MEDS: Budesonide-Formoterol 160/4.5 MCG 6 GM Inhaler INH SCH (08:40)
--- NOTE | 2018-03-30 11:36 | P.PNIM ---
Subjective Interval history: Patient seen and evaluated today in follow-up for hypoxemic respiratory failure and hyponatremia. Both are resolved. Discharge plans discussed with patient Physical Exam Vital signs: Vital Signs 03/29/18 12:00 03/29/18 12:03 03/29/18 12:11 Temperature 98.7 F 99.3 F Pulse Rate 86 88 Respiratory Rate 34 H 31 H Blood Pressure 130/59 L Pulse Oximetry 03/29/18 13:00 03/29/18 14:00 03/29/18 14:26 Temperature Pulse Rate 92 H 78 Respiratory Rate 28 H 21 Blood Pressure Pulse Oximetry 94 L 95 95 03/29/18 15:00 03/29/18 16:00 03/29/18 16:24 Temperature 98.5 F 98.1 F Pulse Rate 72 90 84 Respiratory Rate 23 38 H 39 H Blood Pressure 128/78 Pulse Oximetry 95 78 L 93 L 03/29/18 16:32 03/29/18 20:00 03/30/18 00:00 Temperature 96.9 F L 96.2 F L Pulse Rate 74 87 Respiratory Rate 18 20 Blood Pressure 137/69 149/61 H Pulse Oximetry 96 95 98 03/30/18 04:00 03/30/18 08:00 03/30/18 08:07 Temperature 97.6 F 97.5 F L Pulse Rate 86 87 63 Respiratory Rate 20 20 20 Blood Pressure 171/70 H 153/87 H Pulse Oximetry 97 92 L 99 03/30/18 08:14 Temperature Pulse Rate Respiratory Rate Blood Pressure Pulse Oximetry 93 L Intake & Output 03/29/18 03/30/18 03/30/18 18:59 06:59 18:59 Intake Total 630 / 630 Output Total 400 / 400 Balance -400 / -400 630 / 630 Weight 50.9 kg 47.7 kg Intake: IV 150 / 150 Levaquin 750 mg Premix Inj 150 150 / 150 ML @ 100 mls/hr IV.SIG Q24H SANKET Rx#:[id number] Oral 480 / 480 Output: Urine 400 / 400 Other: # Voids 3 Date of Last Bowel Movement 03/28/18 Weight On Admission 50.9 kg Narrative: GENERAL: Patient calm resting and without complaints SKIN: Warm and dry. No rashes or ecchymotic injuries EYES: Pupils equal and round. No scleral icterus. No injection or drainage. ENT: External ear exam normal. No acute nasal bleeding or discharge. Mucous membranes pink and moist. CARDIOVASCULAR: Regular rate and rhythm. No murmurs gallops or rubs appreciated RESPIRATORY: Good air flow and effort without accessory muscle use. Clear to auscultation. Breath sounds equal bilaterally. GASTROINTESTINAL: Abdomen soft, non-tender, nondistended. Hepatic and splenic margins not palpable. MUSCULOSKELETAL: Extremities without clubbing, cyanosis, or edema. No obvious deformities. NEUROLOGICAL: Awake and alert. No obvious cranial nerve deficits. Motor grossly within normal limits. Five out of 5 muscle strength in the arms and legs. Normal speech. Results - Labs CBC & Chem 7: 03/30/18 07:32 03/30/18 07:32 Laboratory Results - last 24 hr 03/29/18 03/29/18 03/30/18 11:36 11:36 07:32 CBC w Diff Auto diff final WBC 9.2 RBC 4.49 Hgb 14.0 D Hct 41.4 MCV 92.2 MCH 31.2 MCHC 33.8 RDW 13.6 Plt Count 440 MPV 7.9 Neut % (Auto) 80.0 H Lymph % (Auto) 11.4 [place] % (Auto) 7.0 Eos % (Auto) 1.1 Baso % (Auto) 0.5 Neut # (Auto) 7.5 Lymph # (Auto) 1.0 [place] # (Auto) 0.6 Eos # (Auto) 0.1 Baso # (Auto) 0.0 WBC Differential . Differential Comment . Sodium Cancelled 130 L D Potassium 4.1 Chloride 94 L D Carbon Dioxide 27.8 Anion Gap 8 BUN 10 Creatinine 0.47 L Estimated GFR Greater than 89 Random Glucose 123 H Calcium 8.6 Total Bilirubin AST ALT Alkaline Phosphatase Total Protein Albumin 03/30/18 07:32 CBC w Diff WBC RBC Hgb Hct MCV MCH MCHC RDW Plt Count MPV Neut % (Auto) Lymph % (Auto) [place] % (Auto) Eos % (Auto) Baso % (Auto) Neut # (Auto) Lymph # (Auto) [place] # (Auto) Eos # (Auto) Baso # (Auto) WBC Differential Differential Comment Sodium 131 L Potassium 4.7 Chloride 91 L Carbon Dioxide 32.4 H Anion Gap 8 BUN 8 Creatinine 0.54 Estimated GFR Greater than 89 Random Glucose 119 H Calcium 9.3 Total Bilirubin 0.5 AST 13 L ALT 29 Alkaline Phosphatase 83 Total Protein 6.8 D Albumin 2.7 L - Imaging Impressions Chest X-Ray 03/29/18 00:51 CONCLUSION: 1. Changes of obstructive pulmonary disease. 2. Discoid airspace disease in the left lower lobe likely reflecting atelectasis/scarring. Assessment and Plan - Assessment (1) Acute hyponatremia Code(s): E87.1 - Hypo-osmolality and hyponatremia Status: Acute Plan: Resolved (2) Hypoxia Code(s): R09.02 - Hypoxemia Status: Acute Plan: Resolved. Patient may need outpatient pulmonary function testing. Continue with Symbicort for now and levofloxacin (3) Rib fracture Code(s): S22.39XA - Fracture of one rib, unspecified side, initial encounter for closed fracture Status: Acute Plan: Tylenol as needed - Plan Discharge home Activity unrestricted Diet regular
== END 2018-03-30 14:11 | disposition home or self-care (01) ==
LOC: PHED 00:27 → PHEDA 05:01 → PHICU 10:37 → PH3 19:19
PROVIDERS: ADMIT Hospitalist; ATTEND Hospitalist